=== PATIENT | female | born 1990 | race Caucasian/White ===

== ENCOUNTER → 2019-04-27 07:20 | Day surgery (SDC) | payer OTHER ==
[~2019-04-27 07:20] MED LIST: Acetaminophen IV 1GM/100ML * 100 ML ONE; Acetaminophen TAB* 325 MG PO PRN; Buffered Lidocaine 1% SYRIN* 1 ML/SYRINGE INTRADERM ONE; Bupivacaine 0.25% SDV PF* 10 ML VIAL INJ ONE; Cyclobenzaprine TAB* 10 MG PO ONE; Dexamethasone IV* 4 MG/ML 1 ML (4 MG) ONE; Dexmedetomidine* 200 MCG/2 ML 2 ML VIAL ONE; DiMENhydriNATE IV* 50 MG/ML VIAL IV PUSH PRN; DiMENhydriNATE IV* 50 MG/ML VIAL ONE; Famotidine IV* 10 MG/ML 2 ML (20 mg) ONE; HYDROmorphone INJ1* 1 MG/ML SYRINGE ONE; Ketorolac INJ* 30 MG/ML 1 ML VIAL ONE; Lactated Ringers 1000 ML Bag* 1,000 ML IV SCH; Levalbuterol 0.63MG/3ML NEB* UNIT OF USE INH PRN; Lidocaine 2% PF * 5 ML VIAL ONE; Midazolam* 1 MG/ML 2 ML VIAL (2 MG) ONE; Naloxone* 0.4 MG/ML 1 ML VIAL IV PRN; Ondansetron INJ* 2 MG/ML VIAL IV PRN; Ondansetron INJ* 2 MG/ML VIAL ONE; Propofol* 10 MG/ML 20 ML BTL ONE; Rocuronium* 10 MG/ML VIAL ONE; Scopolamine 1.5 mg* PATCH ONE; Scopolamine PATCH Remove* 1 NOTE MISC PATCH OFF ONE; ceFAZolin 2 GM PREMIX in ORs 2 GM/50 ML BAG ONE; diPHENhydraMINE IV* 50 MG/ML 1 ml VIAL (BENADRYL) IV PRN; fentaNYL* 50 MCG/ML 2 ML VIAL (100 MCG VIAL) ONE; oxyCODONE TAB* 5 MG TAB ONE
[2019-04-27] MEDS: HYDROmorphone INJ1* 1 MG/ML SYRINGE IV PRN ×2 (13:03→13:13)
[2019-04-27] MEDS: fentaNYL* 50 MCG/ML 2 ML VIAL (100 MCG VIAL) IV PRN ×5 (13:16→13:47)
[2019-04-27] MEDS: oxyCODONE TAB* 5 MG TAB PO PRN ×2 (13:45→13:55)
[2019-04-27 14:04] VITALS: BP 106/73
--- NOTE | 2019-04-27 15:03 | OP ---
Operative Report - Blank - Operative Report Date of Operation: 04/27/19 Note: PATIENT: Syeda Kendrick DATE OF : 1990 DATE OF SURGERY: 04/27/2019 SURGEON: Jayro Carter MD VICE PRESIDENT OF NEWS: AHSAN Watkins, whos assistance was necessary for positioning, retraction, help with instrumentation, and closure. ANESTHESIOLOGIST: Dr. Valdivia PREOPERATIVE DIAGNOSIS: Left foot painful retained hardware. 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 POSTOPERATIVE DIAGNOSIS: Left foot painful retained hardware. 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 Left Achilles contracture. OPERATION: 1. Left foot removal of hardware. 2. Left saucerization of the dorsal talus and navicular at the talonavicular joint 3. Left ankle arthrodesis with tibial bone graft 4. Left percutaneous Achilles tendon lengthening ANESTHESIA: General IMPLANTS: Arthrex anterior ankle fusion plate and screws. Arthrex 6.7mm cannulated screws TOURNIQUET TIME: 2 hours with a well-padded thigh tourniquet at 250mmHg SPECIMENS: none ESTIMATED BLOOD LOSS: minimal COMPLICATIONS: none STATUS: Stable from the operating room to the recovery room and then home. INDICATIONS FOR PROCEDURE: Syeda has sustained prior talus and distal tibia pilon fractures. She has developed posttraumatic ankle arthritis with the ankle locked in equinus. She also has posttraumatic subtalar and talonavicular joint arthritis with osteophyte formation at the talonavicular joint. She also has retained hardware in the talus. Both operative and non-operative treatment alternatives were reviewed. We also discussed various different surgical options. Further, the nature and risks of surgery were reviewed in careful detail. Our discussions regarding the risks of surgery included, but were not limited to, infection, wound problems, nerve injury, neuroma, RSD, persistent symptoms, blood clot, nonunion, malunion, adjacent joint arthritis, need for further surgery, failure of the surgery, and even the remote chance of catastrophic complication. DESCRIPTION OF PROCEDURE: The patient was seen in the preoperative holding unit and informed written consent was obtained. The appropriate extremity was marked. The patient was then brought to the operating room and carefully positioned on the operating room table. Anesthesia was induced. All bony prominences were padded with great care. A well-padded thigh tourniquet was placed. A chlorhexidine based pre- scrub was performed followed by a chloraprep prep and drape in standard sterile fashion. A surgical safety pause was then conducted in which we confirmed the appropriate patient, extremity, planned procedure, availability of equipment, indication and administration of prophylactic antibiotics, and DVT prophylaxis in the form of a compression boot on the non-surgical extremity. I began with an Esmarch exsanguination of the limb and inflated the tourniquet. I utilized her prior anteromedial ankle incision and extended it proximally and laterally to the midline. Full-thickness flaps were used and the anterior neurovascular bundle and tendons were retracted laterally. I identified the talonavicular joint. The previously placed screws were identified and removed in their entirety. A couple of the screw heads were stripped, so there was some difficulty in getting them removed. There were large overhanging osteophytes at the dorsal talonavicular joint, including the dorsal talus and dorsal navicular bone. An osteotome and Rongeur were then used to remove these large osteophytes, thus performing a saucerization of the dorsal talus and dorsal navicular bones. I then turned my attention to the ankle joint. There was advanced degenerative change of the joint. Osteophytes were excised. Laminar spreaders were placed in the joint and a combination of a scalpel and curettes were used to remove any remaining cartilage from the joint surfaces. I also curetted out the large bone voids in the distal tibia. I then prepared the tibial plafond and talar dome for fusion. This was performed with a rome, small drill, and osteotomes. The joint was then thoroughly irrigated to remove any remaining debris. I was unable to dorsiflex the ankle to neutral, so I decided to perform a percutaneous Achilles tendon lengthening as I had discussed with her preoperatively. I made 3 percutaneous incisions over the Achilles and performed a triple cut lengthening. I was then able to dorsiflex to neutral. I was unable to bring the ankle out of varus, so I performed an oblique osteotomy of the distal fibula to allow some pistoning of that. This allowed me to bring the ankle into a neutral position in both the coronal and sagittal planes. I then turned my attention to the lateral tibial plateau. An incision was made over Gerdy's tubercle and I carefully dissected down to the lateral aspect of the proximal tibia. I then windowed the cortex of the tibia and used a curette to extract cancellous bone graft. I placed some demineralized bone matrix into the posterior aspect of the ankle joint, and then placed the tibial autograft into the central portion of the ankle joint, including filling the bone voids. I then held the ankle manually reduced with compression and a guidewire for the 6.7 mm screw was advanced from the medial metaphysis across the joint line into the the talus. This was imaged to ensure satisfactory positioning. After this had been done, a second K-wire was used to further stabilize the joint. A 6.7 mm partially threaded screw was then advanced from over the first pin and achieved excellent purchase and compression of the joint. An anterior fusion plate from the Arthrex system was then placed in position and held using a wire. This was imaged for position. It was found that some anterior bone needed to be removed from the anterior joint and this allowed the plate to sit more flush. After this had been done, it was imaged again and locking screws were placed through the distal plate into the talus. A compression screw was then placed in the oblong hole of the fusion plate and further compression was obtained. The oblique screw was then placed into the talus. After this had been done proximal screw holes were filled. Fluoroscopy was used throughout the case to assist in reduction and placement of the hardware. At the end of the case, final fluoroscopic images were obtained. The wound was copiously irrigated and meticulously closed in layers utilizing # 1 Vicryl for the deep layer, 3-0 Monocryl for the dermal layer, and shahida for the skin. A sterile dressing was then applied followed by a well-padded splint. The patient was then awakened from anesthesia and transferred to the recovery room in stable condition. There were no complications. All needle and sponge counts were correct at the end of the case. ATTESTATION: I attest I was present and scrubbed and performed the critical portions of the procedure myself. POSTOPERATIVE PLAN: The plan is for nonweightbearing for anticipated duration of 8 weeks. Follow-up will be in 2 weeks for likely suture removal, x-rays, and transition to a short-leg nonweightbearing cast. We will use aspirin for DVT prophylaxis.
--- NOTE | 2019-04-28 13:09 | PN ---
Progress Note - Progress Note Date of Service: 04/28/19
--- NOTE | 2019-04-28 13:09 | PN ---
Progress Note - Progress Note Date of Service: 04/28/19 Note: I was contacted by Nini Mathews about patient having severe pain. Nini inquired about the possibility of a block. I called the patient; she described having 3 previous blocks after which she had burning pain for two weeks each time. I could not promise the patient that she wouldn't have this again. She elected to not try a block.She was gven a phone number to contact us if she changes her mind.
== END | disposition home or self-care (01) ==
LOC: MERGE 07:20 → OR 07:20
PROVIDERS: ATTEND Orthopaedic Surgery
DX: M19.172 Post-traumatic osteoarthritis, left ankle and foot (principal); T84.84XA Pain due to internal orthopedic prosthetic devices, implants and grafts, initial encounter; Y83.1 Surgical operation with implant of artificial internal device as the cause of abnormal reaction of the patient, or of later complication, without mention of misadventure at the time of the procedure; M67.02 Short Achilles tendon (acquired), left ankle; F17.211 Nicotine dependence, cigarettes, in remission; J45.909 Unspecified asthma, uncomplicated
CPT/HCPCS: 76000; 88300; A9270-GY; C1713; C1776; C9359; J0690; J1100; J1170; J1240; J1885; J2250; J2405; J2704; J3010; J3490